=== PATIENT | female | born 1990 | race African-American/Black ===

== ENCOUNTER 2017-03-25 08:54 | Emergency (ER) | payer MEDICAID ==
[~2017-03-25] VITALS: Ht 170.2 cm; Wt 62.0 kg
[2017-03-25] MEDS ORDERED: SODIUM CHLORIDE 0.9% 1,000 ML IV ONE (10:09)
[2017-03-25] MEDS ORDERED: KETOROLAC 30MG/ML VIAL IV ONE (10:15)
[2017-03-25 11:04] LABS: CLARITY URINE CLOUDY (CLEAR); COLOR URINE YELLOW (YELLOW); KETONES URINE TRACE (NEGATIVE); LEUKOCYTE ESTERASE URINE NEGATIVE (NEGATIVE); NITRITE URINE NEGATIVE (NEGATIVE); OCCULT BLOOD URINE TRACE (NEGATIVE); PH URINE 5.5 (4.5-8.0); PROTEIN URINE TRACE (NEGATIVE); SPECIFIC GRAVITY URINE 1.027 (1.005-1.030)
[2017-03-25] MEDS ORDERED: HYDROCODONE/ACETAMINOPHEN 5/325MG TABLET PO ONE (13:30)
[2017-03-25 15:00] VITALS: BP 120/71
== END 2017-03-25 15:32 | disposition home or self-care (01) ==
LOC: ER 09:20
DX: S93.402A Sprain of unspecified ligament of left ankle, initial encounter (principal); S50.02XA Contusion of left elbow, initial encounter; S80.12XA Contusion of left lower leg, initial encounter; F12.10 Cannabis abuse, uncomplicated; M54.5 Low back pain; V09.29XA Pedestrian injured in traffic accident involving other motor vehicles, initial encounter; Y93.89 Activity, other specified; Y92.89 Other specified places as the place of occurrence of the external cause; Y99.8 Other external cause status
CPT/HCPCS: 72100; 72148; 73080; 73521; 73590; 73610; 81001; 81025; 96361; 96374; 99285; J1885; J7030; Z7610